=== PATIENT | male | born 1960 | race Caucasian/White ===

== ENCOUNTER 2023-01-02 08:09 | Day surgery (SDC) | payer OTHER ==
[2022-12-31 10:51] VITALS: BMI 30.5
[2023-01-02] MEDS ORDERED: VANCOMYCIN 1 GM in D5W (PRE-DOCKED) 1,000 MG/250 ML IVPB ONE (09:15)
[2023-01-02] MEDS ORDERED: CEFAZOLIN 2 GM in DEXTROSE 5%-WATER - 50 ML IVPB ONE (09:15)
[2023-01-02] MEDS ORDERED: TRANEXAMIC ACID 1000 MG/10 ML VIAL IVPUSH ONE (09:15)
[2023-01-02] MEDS ORDERED: VANCOMYCIN 1,000 MG VIAL (RESTRICTED TO ID ONLY) ONE ×2 (09:29→11:30)
[2023-01-02] MEDS ORDERED: ROPIVACAINE HCL 0.5% 30ML VIAL ONE (10:35)
[2023-01-02] MEDS ORDERED: BUPIVACAINE HCL 50 ML ONE (10:35)
[2023-01-02] MEDS ORDERED: MIDAZOLAM HCL 2 MG/2 ML SINGLE DOSE VIAL ONE ×3 (10:36→12:44)
[2023-01-02] MEDS ORDERED: PROPOFOL 20 ML ONE ×4 (11:09→13:37)
[2023-01-02] MEDS ORDERED: TRANEXAMIC ACID 1000 MG/10 ML VIAL ONE ×2 (11:30→13:17)
[2023-01-02] MEDS ORDERED: LIDOCAINE HCL/PF 2% SDV 5ML VIAL ONE (11:30)
[2023-01-02] MEDS ORDERED: SODIUM CHLORIDE 0.9% P/F 10 ML VIAL IJ ONE (11:30)
[2023-01-02] MEDS ORDERED: ceFAZolin SODIUM 1 GM VIAL ONE (11:30)
[2023-01-02] MEDS ORDERED: ONDANSETRON 4 MG/2 ML VIAL ONE (11:30)
[2023-01-02] MEDS ORDERED: DEXAMETHASONE SOD PHOSPHATE 4 MG/1 ML VIAL ONE (11:30)
[2023-01-02] MEDS ORDERED: BUPIVICAINE 0.25%/MORPH PF/KETOROLAC - 51ML DISP.SYRINGE IA ONE (12:27)
[2023-01-02] MEDS ORDERED: MAG HYDROX/AL HYDROX/SIMETH 30 ML UNIT-DOSE CUP PO PRN (14:18)
[2023-01-02] MEDS ORDERED: ONDANSETRON 4 MG/2 ML VIAL IVPUSH PRN ×2 (14:18→14:19)
[2023-01-02] MEDS ORDERED: oxyCODONE HCL 5 MG TABLET PO PRN (14:19)
[2023-01-02] MEDS ORDERED: ACETAMINOPHEN INJECTION 100 ML IVPB ONE (14:22)
[2023-01-02] MEDS ORDERED: LACTATED RINGERS SOLUTION 1,000 ML IV SCH ×2 (14:30)
[2023-01-02] MEDS: ACETAMINOPHEN 1000 MG/100 ML BAG IVPB SCH ×2 (14:32→21:33)
[2023-01-02] MEDS ORDERED: FENTANYL CITRATE/PF 50 MCG/ML VIAL ONE (14:35)
[2023-01-02] MEDS: CEFAZOLIN SODIUM 2 GM in DEXTROSE 5%-WATER 100 ML IVPB SCH (17:53)
[2023-01-02 18:23] VITALS: RESP 18
[2023-01-02] MEDS: oxyCODONE HCL 5 MG TABLET PO PRN (19:06)
[2023-01-02] MEDS: GABAPENTIN 300 MG CAPSULE PO SCH (21:32)
[2023-01-02] MEDS: SENNOSIDES/DOCUSATE COMBO (SENNA PLUS) TABLET (UD) PO SCH (21:33)
[2023-01-02] MEDS ORDERED: ASPIRIN 325 MG TABLET PO SCH (22:00)
[2023-01-03] MEDS: CEFAZOLIN SODIUM 2 GM in DEXTROSE 5%-WATER 100 ML IVPB SCH ×2 (03:06→09:22)
[2023-01-03 06:12] VITALS: BP 149/82; PULSE 76; TEMP 98.4
[2023-01-03] MEDS: ACETAMINOPHEN 1000 MG/100 ML BAG IVPB SCH (06:26)
[2023-01-03 08:13] LABS: CALCIUM 8.7 mg/dl (8.5-10); CREATININE 0.9 mg/dl (0.55-1.3)
[2023-01-03 08:15] LABS: HEMATOCRIT 33.7 % (35.4-49); HEMOGLOBIN 11.2 G/dL (11.7-16.9); MCHC 33.3 g/dl (32.0-35.9); MEAN CELL VOLUME 84.1 fl (80-96); MEAN PLT VOLUME 7.6 fl (7.5-11.1); PLATELET COUNT 196.2 10^3/uL (134-434); RBC 4.01 10^6/uL (4.00-5.60)
[2023-01-03] MEDS: oxyCODONE HCL 5 MG TABLET PO PRN (09:24)
[2023-01-03] MEDS: GABAPENTIN 300 MG CAPSULE PO SCH (09:26)
[2023-01-03] MEDS: SENNOSIDES/DOCUSATE COMBO (SENNA PLUS) TABLET (UD) PO SCH (09:26)
[2023-01-03] MEDS ORDERED: ASPIRIN 325 MG TABLET PO SCH (10:00)
[2023-01-03] MEDS ORDERED: LOSARTAN POTASSIUM 50 MG TABLET PO SCH ×2 (10:00)
[2023-01-03] MEDS ORDERED: PANTOPRAZOLE 40 MG TABLET PO SCH (10:00)
== END 2023-01-03 13:33 | disposition home or self-care (01) ==
LOC: FASU 08:09 → FM/S 15:21 → FASU 01-03 13:33
PROC: 8E0Y0CZ Robotic Assisted Procedure of Lower Extremity, Open Approach (ICD-10-PCS; 2023-01-02)
PROC: 0SRB0JA Replacement of Left Hip Joint with Synthetic Substitute, Uncemented, Open Approach (ICD-10-PCS; principal; 2023-01-02 10:15)
DX: M16.12 Unilateral primary osteoarthritis, left hip (principal)
CPT/HCPCS: 20985; 27130; C1776; S2900; 36415; 73502-TC-LT-FY; 80048; 85027; 88305-TC; 88311-TC; 94760; 97116-GP; 97162-GP; C1713; C1889; C9803-CS; U0003; U0005

== ENCOUNTER 2023-04-13 11:10 | Inpatient (IN) | payer OTHER ==
[2023-04-08 17:16] VITALS: BMI 31.4
[2023-04-13] MEDS ORDERED: VANCOMYCIN 1 GM/200 ML PREMIX BAG (RESTRICTED TO ID ONLY) IVPB ONE (11:30)
[2023-04-13] MEDS ORDERED: CEFAZOLIN SODIUM 2 GM in DEXTROSE 5%-WATER 100 ML IVPB ONE (11:30)
[2023-04-13] MEDS ORDERED: ONDANSETRON 4 MG/2 ML VIAL IVPUSH PRN ×2 (12:28→16:49)
[2023-04-13] MEDS ORDERED: PROMETHAZINE HCL 25 MG/1 ML VIAL IVPB PRN (12:28)
[2023-04-13] MEDS ORDERED: TRANEXAMIC ACID 1000 MG/10 ML VIAL IVPUSH ONE (12:30)
[2023-04-13] MEDS ORDERED: LACTATED RINGERS SOLUTION 1,000 ML IV SCH ×2 (12:30→17:00)
[2023-04-13] MEDS ORDERED: VANCOMYCIN 1,000 MG VIAL (RESTRICTED TO ID ONLY) ONE ×2 (12:34→15:20)
[2023-04-13] MEDS ORDERED: BUPIVACAINE HCL/PF 0.5% (5MG/ML) 10 ML VIAL ONE (12:35)
[2023-04-13] MEDS ORDERED: LIDOCAINE HCL/PF 2% SDV 5ML VIAL ONE (12:36)
[2023-04-13] MEDS ORDERED: PROPOFOL 60 ML ONE (12:36)
[2023-04-13] MEDS ORDERED: TRANEXAMIC ACID 1000 MG/10 ML VIAL ONE ×2 (12:36→16:43)
[2023-04-13] MEDS ORDERED: SUCCINYLCHOLINE CHLORIDE 200 MG/10 ML SYRINGE ONE (12:37)
[2023-04-13] MEDS ORDERED: MIDAZOLAM HCL 2 MG/2 ML SINGLE DOSE VIAL ONE ×2 (12:37→13:58)
[2023-04-13] MEDS ORDERED: ACETAMINOPHEN INJECTION 100 ML IVPB ONE (13:11)
[2023-04-13] MEDS ORDERED: BUPIVACAINE HCL/PF 0.5% (5 MG/ML) 30 ML VIAL IJ ONE (13:43)
[2023-04-13] MEDS ORDERED: LIDOCAINE 1% P/F 10 MG/ML VIAL ONE (13:45)
[2023-04-13] MEDS ORDERED: BUPIVICAINE 0.25%/MORPH PF/KETOROLAC - 51ML DISP.SYRINGE IA ONE ×2 (15:17→16:28)
[2023-04-13] MEDS ORDERED: PROPOFOL 20 ML ONE ×2 (16:00→16:41)
[2023-04-13] MEDS ORDERED: VANCOMYCIN 1,000 MG VIAL (RESTRICTED TO ID ONLY) IVPB ONE (16:32)
[2023-04-13] MEDS ORDERED: MAG HYDROX/AL HYDROX/SIMETH 30 ML UNIT-DOSE CUP PO PRN (16:49)
[2023-04-13] MEDS: ACETAMINOPHEN 500 MG TABLET (FP) PO SCH ×2 (18:59→20:49)
[2023-04-13 20:29] VITALS: RESP 18
[2023-04-13] MEDS ORDERED: SODIUM CHLORIDE 100 ML IVPB ONE (21:20)
[2023-04-13] MEDS: CEFAZOLIN SODIUM 2 GM in DEXTROSE 5%-WATER 100 ML IVPB SCH (21:49)
[2023-04-13] MEDS: SENNOSIDES/DOCUSATE COMBO (SENNA PLUS) TABLET (UD) PO SCH (21:50)
[2023-04-13] MEDS: oxyCODONE HCL 10 MG SUSTAINED ACTING TABLET PO SCH (21:50)
[2023-04-13] MEDS: GABAPENTIN 300 MG CAPSULE PO SCH (21:50)
[2023-04-13] MEDS: oxyCODONE HCL 5 MG TABLET PO PRN ×2 (21:51→23:44)
[2023-04-14] MEDS: ACETAMINOPHEN 500 MG TABLET (FP) PO SCH ×3 (03:49→12:30)
[2023-04-14] MEDS: CEFAZOLIN SODIUM 2 GM in DEXTROSE 5%-WATER 100 ML IVPB SCH ×2 (05:18→15:28)
[2023-04-14] MEDS: oxyCODONE HCL 5 MG TABLET PO PRN ×2 (05:35→14:30)
[2023-04-14 08:00] LABS: HEMATOCRIT 31.9 % (35.4-49); HEMOGLOBIN 10.5 G/dL (11.7-16.9); MCH 26.6 pg (25.7-33.7); MCHC 32.8 g/dl (32.0-35.9); MEAN CELL VOLUME 81.2 fl (80-96); MEAN PLT VOLUME 8.3 fl (7.5-11.1); PLATELET COUNT 156.5 10^3/uL (134-434); RBC 3.93 10^6/uL (4.00-5.60); RDW 15.9 % (11.9-15.9); WHITE BLOOD COUNT 9.5 10^3/uL (4.0-10.8)
[2023-04-14 08:15] LABS: CALCIUM 8.7 mg/dl (8.5-10); CREATININE 1.2 mg/dl (0.55-1.3); POTASSIUM 4.6 mmol/L (3.5-5.1)
[2023-04-14] MEDS ORDERED: MULTIVITAMINS (DAILY MVI) TABLET (FP) PO SCH (10:00)
[2023-04-14] MEDS ORDERED: ASPIRIN COATED 81 MG TABLET.EC PO SCH (10:00)
[2023-04-14] MEDS ORDERED: PANTOPRAZOLE 40 MG TABLET PO SCH (10:00)
[2023-04-14] MEDS: oxyCODONE HCL 10 MG SUSTAINED ACTING TABLET PO SCH (10:03)
[2023-04-14] MEDS: SENNOSIDES/DOCUSATE COMBO (SENNA PLUS) TABLET (UD) PO SCH (10:04)
[2023-04-14] MEDS: GABAPENTIN 300 MG CAPSULE PO SCH (10:04)
[2023-04-14 13:58] VITALS: BP 122/51; PULSE 78; TEMP 99.1
== END 2023-04-14 14:32 | disposition home or self-care (01) | DRG 301 ==
LOC: FM/S 11:20
PROVIDERS: ATTEND Internal Medicine
PROC: 8E0W0CZ Robotic Assisted Procedure of Trunk Region, Open Approach (ICD-10-PCS; 2023-04-13)
PROC: 0SR90JZ Replacement of Right Hip Joint with Synthetic Substitute, Open Approach (ICD-10-PCS; principal; 2023-04-13 15:10)
DX: M16.11 Unilateral primary osteoarthritis, right hip (principal); I10 Essential (primary) hypertension; M06.8A Other specified rheumatoid arthritis, other specified site; M54.50 Low back pain, unspecified
CPT/HCPCS: 36415; 73502-TC-RT-FY; 80048; 85027; 88305-TC; 88311-TC; 94760; 97010-GP; 97116-GP; 97162-GP; C1776; C1889